=== PATIENT | male | born 1955 | race Caucasian/White ===

== ENCOUNTER 2018-02-28 14:06 | Emergency (ER) | payer OTHER ==
[2018-02-28] MEDS ORDERED: Acetaminophen/HYDROcodone 325-10 MG Tab PO ONE (14:07)
[2018-02-28] MEDS ORDERED: Cephalexin 500 MG Cap PO ONE (16:36)
[2018-02-28] MEDS ORDERED: Diphtheria,Pertussis(Acell),Tetanus Vaccine 0.5 ML SDV IM ONE (16:37)
--- NOTE | 2018-02-28 17:01 | EDM.PDOC ---
Scribed by Suki De León 02/28/18 1701 for Sorin Nogueira MD ED HPI GENERAL MEDICAL PROBLEM - General Chief Complaint: Laceration Stated Complaint: finger cut [phone] Time Seen by Provider: 02/28/18 14:46 Source of Information: Reports: Patient, RN, RN Notes Reviewed History Limitations: Reports: No Limitations - History of Present Illness INITIAL COMMENTS - FREE TEXT/NARRATIVE: Patient presents to ER by private vehicle with complaint of injury to right fifth finger sustained prior to arrival when a eli-handle snapped back and struck his finger. No other injury. Onset: Today Location: Reports: Upper Extremity, Right Quality: Reports: Ache Severity: Mild Improves with: Reports: None Worsens with: Reports: None Associated Symptoms: Reports: No Other Symptoms - Related Data Allergies Allergy/AdvReac Type Severity Reaction Status Date / Time ampicillin Allergy Unknown unknown Verified 02/28/18 14:41 Home Meds: Home Meds . [Unable to Verify Home Med List] 02/28/18 [History] Social & Family History - Family History Family Medical History: Noncontributory - Living Situation & Occupation Living situation: Reports: , with Spouse Review of Systems - Review of Systems Review Of Systems: ROS reveals no pertinent complaints other than HPI. ED EXAM, GENERAL - Physical Exam Exam: See Below Exam Limited By: No Limitations General Appearance: Alert, WD/WN, No Apparent Distress, Obese Head: Atraumatic, Normocephalic Respiratory/Chest: No Respiratory Distress Cardiovascular: Normal Peripheral Pulses Extremities: Normal Range of Motion, Normal Capillary Refill, Other (soft tissue avulsion of the distal right 5th finger with complete avulsion of the nail. No exposed bone. No foreign body. No active bleeding. ) Neurological: Alert, Oriented, No Motor/Sensory Deficits Course - Vital Signs Last Recorded V/S: Last Vital Signs Temp 36.4 C 02/28/18 14:36 Pulse 68 02/28/18 14:36 Resp 18 02/28/18 14:36 BP 155/88 H 02/28/18 16:43 Pulse Ox 97 02/28/18 14:36 - Orders/Labs/Meds Orders: Active Orders 24 hr Category Date Time Status Vaccines to be Administered [RC] PER UNIT ROUTINE Care 02/28/18 16:37 Active Wound Care [RC] ONETIME Care 02/28/18 16:37 Active Fingers Fifth Digit Rt F9 [CR] Urgent Exams 02/28/18 14:46 Taken DME for Discharge [COMM] Routine Oth 02/28/18 16:39 Ordered Meds: Medications Discontinued Medications Generic Name Dose Route Start Last Admin Trade Name Miller PRN Reason Stop Dose Admin Cephalexin 500 mg 02/28/18 16:36 02/28/18 16:52 Keflex PO 02/28/18 16:37 500 mg ONETIME ONE Administration Diphtheria/Tetanus/Acell Pertussis 0.5 ml 02/28/18 16:37 02/28/18 16:50 Adacel IM 02/28/18 16:38 0.5 ml .ONCE ONE Administration - Radiology Interpretation Free Text/Narrative:: X-ray right fingers: Nondisplaced distal 5th phalanx fracture. See rad report. Departure - Departure Time of Disposition: 16:54 Disposition: Home, Self-Care 01 Condition: Good Clinical Impression: Soft tissue avulsion, Open fracture of distal phalangeal tuft Nail avulsion, finger Qualifiers: Encounter type: initial encounter Qualified Code(s): S61.309A - Unspecified open wound of unspecified finger with damage to nail, initial encounter - Discharge Information Instructions: Nail Avulsion, Finger Fracture, [id number] Forms: ED Department Discharge Additional Instructions: RX: Cephalexin 500mg. RX: [place] 5mg/325mg. *DO NOT DRIVE WHILE UNDER THE INFLUENCE OF THIS MEDICATION Leave the [place] portion of the dressing in place for as long as possible (7 to 10 days). Follow up in clinic for recheck in 7 to 10 days. Return to ER if any signs of infection develop. - My Orders Last 24 Hours: My Active Orders 02/28/18 14:46 Fingers Fifth Digit Rt F9 [CR] Urgent 02/28/18 16:37 Vaccines to be Administered [RC] PER UNIT ROUTINE Wound Care [RC] ONETIME 02/28/18 16:39 DME for Discharge [COMM] Routine - Assessment/Plan Last 24 Hours: My Active Orders 02/28/18 14:46 Fingers Fifth Digit Rt F9 [CR] Urgent 02/28/18 16:37 Vaccines to be Administered [RC] PER UNIT ROUTINE Wound Care [RC] ONETIME 02/28/18 16:39 DME for Discharge [COMM] Routine I have read and agree with the documentation that has been completed regarding this visit. By signing this record, I attest that the documentation was completed in my physical presence and is an accurate record of the encounter.
[2018-02-28] MEDS ORDERED: Acetaminophen/HYDROcodone 325-10 MG Tab ONE (17:13)
== END 2018-02-28 17:21 | disposition home or self-care (01) ==
LOC: DL.ED 14:06
DX: S62.666B Nondisplaced fracture of distal phalanx of right little finger, initial encounter for open fracture (principal); Z23 Encounter for immunization; Z88.1 Allergy status to other antibiotic agents; W26.8XXA Contact with other sharp object(s), not elsewhere classified, initial encounter
CPT/HCPCS: 73140; 90471; 90715; 99283; A9270